=== PATIENT | female | born 1975 | race Two or more races ===

== ENCOUNTER 2020-10-23 14:17 | Outpatient (CLI) | payer BC | END 2020-10-23 23:59 | disposition home or self-care (01) | LOC: MSC 14:17 | PROVIDERS: ATTEND Anesthesiology | DX: M50.10 Cervical disc disorder with radiculopathy, unspecified cervical region (principal); M54.16 Radiculopathy, lumbar region; M62.830 Muscle spasm of back; G89.4 Chronic pain syndrome; M79.7 Fibromyalgia ==

== ENCOUNTER 2022-07-23 12:48 | Outpatient (CLI) | payer BC | END 2022-07-23 23:59 | disposition home or self-care (01) | LOC: LAB 12:48 | PROVIDERS: ATTEND Legal Medicine | DX: Z00.00 Encounter for general adult medical examination without abnormal findings (principal) | CPT/HCPCS: 36415; 86480 ==